=== PATIENT | male | born 1975 | race African-American/Black ===

== ENCOUNTER 2016-04-28 21:50 | Inpatient (IN) | payer OTHER ==
[~2016-04-28] VITALS: Ht 175.3 cm; Wt 80.6 kg
--- NOTE | ~2016-04-28 | EKG ---
[place] [address] [facility] [place] [address] ELECTROCARDIOGRAM REPORT Name: DERRICK KEENAN Room #: 215-P ADM IN M.R.#: [id number] Admission: 04/29/16 Attend Phys: Tracy Stewart Discharge: Date of : 71 Report #: [id number] THIS REPORT FOR: //name// [facility] ED Test Date: 2016-04-28 Test Time: 21:51:57 Pat Name: DERRICK KEENAN Department: Room: 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
--- NOTE | ~2016-04-28 | HC ---
[facility] [address] [place] [address] CONSULTATION Name: DERRICK KEENAN Room #: 215-P [facility] IN M.R.#: [id number] Admission: 04/29/16 Attend Phys: Tracy Stewart Discharge: 04/30/16 Date of : 71 Report #: [id number] THIS REPORT FOR: //name// CC: FAM unknown Tracy Stewart CARDIOLOGY CONSULTATION HISTORY OF PRESENT ILLNESS: The patient is a 41-year-old who was recently hospitalized in March with chest pain. He has a history of a prior heart catheterization about a year ago that showed normal coronary arteries. In March, he underwent nuclear stress test which was normal, with no evidence of ischemia and a normal EF. On April 27, the patient reports that he was home and started feeling some lightheadedness. He had numbness in his bilateral hands and feet. His hands were sweaty and he felt very nervous. He was seen in the [facility] emergency room, where he had multiple tests including a CT scan of the chest that was normal. There was no evidence of PE or aortic dissection. He was sent home. On April 28, the patient was in his usual state of health. Again, it was late at night and he was cooking soup for his family. He started having his same sensation of lightheadedness. He had numbness in his hands and feet. He felt very shaky. He checked his blood sugar and it was 117. He felt that he was developing tunnel vision. He fell to the floor and passed out, laid there for a few minutes and then came to. Therefore, he came back to the emergency room. He denies any chest pain or chest tightness. He denies PND or orthopnea. 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 PAST MEDICAL HISTORY: Diabetes, hypertension and hypercholesterolemia. SOCIAL HISTORY: He smokes. He does not drink heavy alcohol. FAMILY HISTORY: His mother has high blood pressure and has a pacemaker placed about 7 years ago for an arrhythmia at [facility]. ALLERGIES: He has no known drug allergies. MEDICATIONS: Include thiamine, lisinopril, fish oil, atorvastatin, aspirin, pantoprazole, insulin, fenofibrate and Zofran. PHYSICAL EXAMINATION: VITAL SIGNS: Temperature is 36.4, pulse 77, respiratory rate 17, blood pressure 115/78 and sats are 99%. GENERAL: He is in no acute distress. HEENT: Sclerae are anicteric. Oropharynx is clear. NECK: Supple with no thyromegaly. [facility] [address] [place] [address] CONSULTATION Name: DERRICK KEENAN Room #: 215-P [facility] IN M.R.#: [id number] Admission: 04/29/16 Attend Phys: Tracy Stewart Discharge: 04/30/16 Date of : 71 Report #: [id number] HEART: Regular rate and rhythm, with no murmurs, rubs or gallops. LUNGS: Clear to auscultation bilaterally. ABDOMEN: Soft, nontender and nondistended, with no hepatosplenomegaly. EXTREMITIES: There is no clubbing, cyanosis or edema. NEUROLOGIC: Cranial nerves 2-12 are intact. LABORATORY DATA: White count 6.6, hemoglobin 14 and platelets 209,000. Chemistries: Potassium 4.2, creatinine 1.3. Magnesium 2.0. Troponin is less than 0.[address] head showed no issues. A 12-lead EKG shows normal sinus rhythm with normal intervals. 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 Thus far, his cardiac evaluation has been unrevealing. He has had a prior nuclear stress test that showed no evidence of ischemia and normal EF. He has also had no arrhythmias noted on a monitor and storage bin tender. I would recommend obtaining an echocardiogram today. It is possible that he has some vasovagal syncope. I discussed multiple options including wearing a monitor and storage bin tender for a period of a month or undergoing implantation of an implantable loop recorder. He is not interested in having a loop inserted. He also would like to attempt to wear monitor and storage bin tender through his regular physician, which he will obtain as an outpatient. I thank you for allowing me to participate in his care. <ELECTRONICALLY SIGNED> By: Faisal Rider MD 05/03/16 1349 1200 1342 Faisal Rider MD /nt
--- NOTE | ~2016-04-28 | HC ---
[facility] [address] [place] [address] CONSULTATION Name: DERRICK KEENAN Room #: 215-P ADM IN M.R.#: [id number] Admission: 04/29/16 Attend Phys: Tracy Stewart Discharge: Date of : 71 Report #: [id number] THIS REPORT FOR: //name// CC: FAM unknown Tracy Stewart DATE OF SERVICE: 04/29/2016 INDICATION: Syncope. HISTORY OF PRESENT ILLNESS: This is a 40-year-old gentleman presenting with an episode of syncope at home. He had been standing in his kitchen preparing dinner last evening. He started to feel generalized weakness and a hot sensation throughout his body. He proceeded to sit down in his chair, checked a fingerstick glucose level, which was within normal limits. He then stood up to check his blood pressure and felt worsening of his symptoms. He proceeded to sit in his chair and lost consciousness and had an episode of loss of consciousness for a few seconds. He also describes a discomfort on the left side of his chest, radiating down his arm. He was recently hospitalized for shortness of breath and chest pain. He did have a negative nuclear stress test. 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 He was able to pull to the side before anything serious happened. There is no history of fever, chills or congestion. PAST MEDICAL HISTORY: Reports having cardiac catheterization at [facility] about a year ago that was unremarkable. Had a nuclear stress test on 04/11/2016 at [facility], nonischemic. Recent echo reveals normal LV systolic function. Hypertension, hypercholesterolemia, borderline diabetes mellitus. ALLERGIES: None. MEDICATIONS: Include lisinopril/HCTZ 20/25 mg daily, atorvastatin 40 mg daily, Fenofibrate 160 daily, aspirin once a day, thiamine, Tylenol. SOCIAL HISTORY: Negative for tobacco use. FAMILY HISTORY: Negative for premature CAD. REVIEW OF SYSTEMS: A full 10-point review of systems performed. Only the pertinent positives and negatives are described in the HPI. PHYSICAL EXAMINATION: VITAL SIGNS: Blood pressure is 130/80, heart rate is 68 beats per minute. GENERAL APPEARANCE: A well-developed, well-nourished male in no acute respiratory distress. [address] [address] CONSULTATION Name: DERRICK KEENAN Room #: 215-P [facility] IN M.R.#: [id number] Admission: 04/29/16 Attend Phys: Tracy Stewart Discharge: Date of : 71 Report #: [id number] HEAD AND EYES: Normocephalic. Sclerae are anicteric. ENT: Oral mucosa moist. NECK: Supple. LUNGS: Clear to auscultation. CARDIAC: Regular rate and rhythm, S1, S2 positive. ABDOMEN: Soft. EXTREMITIES: No major joint deformities. No edema. ECG reveals sinus rhythm, early repolarization. LABORATORY VALUES: Serial troponin levels are negative. White count is 6.6, hemoglobin is 14.3. Sodium is 129, creatinine is 1.2. ASSESSMENT: 1. Syncope, the etiology is unclear: We will need to rule out an arrhythmia. With his negative ischemic evaluation recently, unlikely to be from coronary artery disease. Other considerations will include arrhythmias. He will need evaluation for orthostatic blood pressure changes. He will have an EP consultation for possible implantable monitor. 2. Chest pain, noncardiac in etiology. Troponin levels are negative and a recent ischemic evaluation was unremarkable. More likely related to a musculoskeletal etiology. 3. Hypertension: Given his symptoms of syncope and near syncope, I would avoid diuretic therapy at this time. 4. Hypercholesterolemia, continue with statins. 5. Diabetes mellitus. Thank you for allowing me to participate in the care of your patient. <ELECTRONICALLY SIGNED> By: Mik Booth MD 04/30/16 0838 1022 [id number] Mik Booth MD /nt
[~2016-04-28 21:50] MED LIST: ASPIR 8181 MG PO; ATORVASTATIN CA40 MG PO; FENOFIBRATE160 MG PO; FISH OIL 1,001000 M2 PO; PROTONIX 20 MG20 M1 PO; VITAMIN B-1100 M1 PO; ZESTORETIC 20-1 EAC1 PO
[2016-04-28 21:54] VITALS: BP 157/83
[2016-04-28 22:20] LABS: ABSOLUTE NEUTROPHILS 2.6 thou/uL (1.4-8.2); BASOPHILS 1.1 % (0.0-2.0); EOSINOPHILS 13.3 % (0.0-3.0); HEMATOCRIT 42.2 % (42.0-52.0); HEMOGLOBIN 14.3 gm/dL (14.0-18.0); LYMPHOCYTES 41.3 % (24.0-44.0); MCH 30.5 pg (26.0-34.0); MCHC 33.8 % (28.0-37.0); MCV 90.2 fL (80.0-100.0); MONOCYTES 4.5 % (1.0-8.0); PLATELET COUNT 209 thou/uL (150-400); POLYS 39.8 % (36.0-66.0); RBC 4.68 mil/uL (4.50-6.00); WBC 6.6 thou/uL (4.0-11.0)
[2016-04-28 22:25] LABS: MANUAL DIFF NO
[2016-04-28 22:28] LABS: ANION GAP < 0 mmol/L (7-16); BUN 14 mg/dL (7-18); CALCIUM 9.3 mg/dL (8.5-10.1); CHLORIDE 105 mmol/L (98-107); CO2 27 mmol/L (21-32); CREATININE 1.2 mg/dL (0.6-1.3); GLUCOSE 106 mg/dL (70-99); POTASSIUM 3.4 mmol/L (3.5-5.1); SODIUM 129 mmol/L (136-145)
[2016-04-28 22:36] LABS: TROPONIN-I < 0.04 ng/mL (<0.04-0.07)
[2016-04-29] VITALS (11 sets, daily range): BP systolic 113–147; BP diastolic 68–92
[2016-04-29] MEDS ORDERED: FISH OIL 1,001000 M2 PO (02:41)
[2016-04-29] MEDS ORDERED: VITAMIN B-1100 M1 PO (02:42)
[2016-04-29] MEDS ORDERED: TYLENOL325 MG PO (02:46)
[2016-04-30 02:59] LABS: CALCIUM 8.8 mg/dL (8.5-10.1); CREATININE 1.3 mg/dL (0.6-1.3); POTASSIUM 4.2 mmol/L (3.5-5.1)
[2016-04-30 04:25] VITALS: BP 116/81
[2016-04-30 07:30] VITALS: BP 115/78
[2016-04-30 08:00] VITALS: BP 115/78
[2016-04-30 08:40] VITALS: BP 120/82
[2016-04-30 12:15] VITALS: BP 118/78
[2016-04-30 14:46] VITALS: BP 118/78
== END 2016-04-30 15:20 | disposition home or self-care (01) | DRG 312 ==
LOC: ER 21:50 → EROBS 04-29 01:12 → 2N 04-29 01:12
PROVIDERS: Emergency Medicine; Nurse Practitioner Acute Care
DX: R55 Syncope and collapse (principal); E87.6 Hypokalemia; E78.00 Pure hypercholesterolemia, unspecified; R07.89 Other chest pain; E78.5 Hyperlipidemia, unspecified; E11.9 Type 2 diabetes mellitus without complications; I10 Essential (primary) hypertension; Z82.49 Family history of ischemic heart disease and other diseases of the circulatory system; Z83.49 Family history of other endocrine, nutritional and metabolic diseases; Z83.3 Family history of diabetes mellitus; Z87.891 Personal history of nicotine dependence
CPT/HCPCS: 10081